=== PATIENT | female | born 1995 | race Caucasian/White ===

== ENCOUNTER 2024-10-13 07:42 | Inpatient (IN) ==
[2024-10-13] MEDS ORDERED: OXYTOCIN 30 UNITS/NSS 30 UNITS/500 ML BAG IV PRN (07:59)
[2024-10-13] MEDS ORDERED: CALCIUM CARBONATE 500 MG CHEWABLE TAB PO PRN (07:59)
[2024-10-13] MEDS ORDERED: LIDOCAINE 1% LOCAL 20 ML VIAL INFIL PRN (07:59)
--- NOTE | 2024-10-13 08:09 | History & Physical Report ---
Date of Service October 13, 2024 Assessment & Plan (1) Encounter for induction of labor: Paulette Castro is a 29yo at 39w0d admitted for induction of labor. Lazo bulb placed 8:30am 10/13/24 Pitocin 2 by 2 AROM when indicated Continue monitoring tracing, currently category 1 Admission and Anticipated Discharge Date Admission Date: October 13, 2024 History of Present Illness Chief Complaint: IOL Primary Care Provider: Nita Fox, DO Castro is a 29yo at 39w0d admitted for induction of labor. Feeling well today, denies any significant complications during . Baby moving: yes, regularly Contractions: yes but not regular yet Vaginal bleeding/discharge: denies Pain: denies significant Endorses mild intermittent headaches, nausea for which she has taken zofran and phenergan, and seeing "black spots" in her vision within the past few weeks that come and go. Otherwise denies chest pain, SOB, n/v/d, LE pain. Endorses her appetite has been very good in recent days. Last BM was yesterday afternoon, a bit constipated due to taking iron but taking stool softener. Denies headache, chest pain, abdominal pain, SOB, nausea/vomiting, diarrhea, or LE pain/swelling. GBS-, Rh+, T. pallidum pending. Allergies Allergy/AdvReac Type Severity Reaction Status Date / Time clavulanic acid Allergy Intermediate Gastrointestinal Verified 10/13/24 08:36 [From Augmentin] Upset Home Medications Medication Instructions Recorded Confirmed Type docusate sodium 100 mg capsule 100 mg PO DAILY 10/13/24 10/13/24 History ferrous sulfate 325 mg (65 mg 325 mg PO DAILY 10/13/24 10/13/24 History iron) tablet (Iron (ferrous sulfate)) vits no.124-ferrous fum PO 10/13/24 History 27 mg iron-folic acid 800 mcg tablet ( Vitamin) sertraline 50 mg tablet (Zoloft) 50 mg PO DAILY 10/13/24 10/13/24 History Patient History Medical History Depression with anxiety Varicella vaccination Surgical History S/P myringotomy with insertion of tube S/P wisdom tooth extraction Family History Grandfather (Maternal) Colorectal cancer Heart disease Mother Diabetes Crohn's disease Grandfather (Paternal) Heart disease Denies family history of Ovarian cancer Breast cancer Social History Smoking Status: Never smoker Do You Dip or Chew Tobacco: No; Hx Alcohol Use: No Hx Substance Use: No Preferred Language: Wolof Potato Picker Required: No Beliefs That Will Affect Care: None marital status: marital status details: Tomy Avelar (30) [phone] Current Living Situation: Spouse Current Living Situation Comment: lives with spouse, dog current occupational status: employed 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 Other Information That Helps Us Care for You: No Feels Safe at Home: Yes Safety Concerns: Feels Safe At This Time Assistive Devices: None Physical Exam Physical Exam: General: A&Ox3, appearing in no distress HEENT: moist mucous membranes, EOM intact, anicteric sclerae CV: RRR, +s1/s2, no m/r/g Resp: clear to auscultation b/l, no wheeze/rales/rhonchi GI/Abd: BS+, gravid, FHR pads in place Cervical: 1 | 50 | -2 , currently lazo bulb in place, est weight 8-9lbs LE: no significant swelling, calves nontender to palpation b/l, Klever's neg b/l Neuro: no facial droop, speech intact, wiggles toes on command Psych: normal speech, mood-affect congruence : FHR 155 baseline, moderate variability, accels present, decels neg Results & Data Vital Signs (Past 12 Hours) Vital Signs Pulse BP 10/13/24 08:02 111 H 130/85 Supervising Physician Co-Signing Physician Notes Resident Physician Supervision Note: I interviewed and examined the patient. Discussed with Dr. Cruz and agree with findings and plan as documented in the note. Any exceptions or clarifications are listed here: [None] Documented By: Lisy Ryan MD, FACOG Resident Activity Tracking Resident Involvement: Resident Care Provided Care Provided: OB Delivery
--- NOTE | 2024-10-13 08:38 | Labor Progress Brief Note ---
Date of Service October 13, 2024 Subjective planned lazo for unfavorable cx Assessment & Plan (1) Encounter for induction of labor: (2) Obesity affecting : Plan lazo placed, starting pit, see H&P Admission and Anticipated Discharge Date Admission Date: October 13, 2024 Physical Exam Constitutional: WD/WN, vitals as above Genitourinary: Manual OB Exam: + cervical dilation (visually closed) OB Exam Monitor Tracing: + external FHT monitor used (150s) PROCEDURE: sse cx visualized, grasped on ant lip with ring forcep, lazo through os and balloon inflated with 40cc sterile water. Spec removed, lazo taped to leg. pt marlene well. Results & Data Vital Signs (Past 12 Hours) Vital Signs Temp Pulse Resp BP 10/13/24 08:11 98.4 F 20 10/13/24 08:02 111 H 130/85 Coding Level of Care Code None Diagnoses Encounter for induction of labor Z34.90 Obesity affecting O99.210 CPT Codes Misx Procedure Codes - 85033 Placement of cervical dilator: 23413 Placement of cervical dilator ([id number]) TALENT DEVELOPMENT ANALYST Miscellaneous Codes Misx Procedure Codes 45879 Placement of cervical dilator
[2024-10-13 08:40] LABS: Hematocrit (blood only) 30.9 % (37.0-47.0); Hemoglobin 10.2 g/dl (12.0-16.0); Mean Corpuscular Hemoglobin 27.6 pg (25.0-34.0); Mean Corpuscular Volume 83.7 fL (80.0-100.0); Mean Platelet Volume 10.5 fL (9.4-12.4); Platelet Count 294 K/uL (130-400); RDW Coefficient of Variation 15.8 % (11.5-14.5); RDW Standard Deviation 47.7 fL (36.4-46.3); Red Blood Count 3.69 M/uL (4.20-5.40); White Blood Count 9.92 K/ul (4.8-10.8)
[2024-10-13] MEDS: LACTATED RINGER'S 1,000 ML IV PRN (09:17)
[2024-10-13] MEDS: OXYTOCIN 30 UNITS/NSS 30 UNITS/500 ML BAG IV PRN (09:21)
--- NOTE | 2024-10-13 16:47 | Anesthesiology Consultation ---
Date of Service October 13, 2024 Assessment & Plan Chart Review Chart Review: Acceptable Risk for Surgery and Patient NOT seen in Pre Admission Testing Consults Requested none History Height/Weight Height: 5 ft 3 in Weight: 108.862 kg Allergies Allergy/AdvReac Type Severity Reaction Status Date / Time clavulanic acid Allergy Intermediate Gastrointestinal Verified 10/13/24 08:36 [From Augmentin] Upset Medications Home Medications Medication Instructions Recorded Confirmed Last Taken docusate sodium 100 mg capsule 100 mg PO DAILY 10/13/24 10/13/24 10/12/24 08:00 ferrous sulfate 325 mg (65 mg 325 mg PO DAILY 10/13/24 10/13/24 10/12/24 08:00 iron) tablet (Iron (ferrous sulfate)) vits no.124-ferrous fum PO 10/13/24 10/12/24 08:00 27 mg iron-folic acid 800 mcg tablet ( Vitamin) sertraline 50 mg tablet (Zoloft) 50 mg PO DAILY 10/13/24 10/13/24 10/12/24 08:00 Active Medications Generic Name Dose Route Start Last Admin Trade Name Freq PRN Reason Stop Dose Admin Lactated Ringer's 1,000 mls @ 125 mls/hr 10/13/24 07:59 10/13/24 09:17 Lr IV 10/14/24 07:58 125 mls/hr .Q8H PRN Administration L&D Protocol Protocol Oxytocin 30 units in 500 mls @ 10 mls/hr 10/13/24 07:59 10/13/24 16:00 Pitocin 30 Units/Nss IV 10/15/24 07:58 0.72 units/hr .Q24H PRN 12 mls/hr Labor Induction/Augmentation Titration Protocol 0.6 UNITS/HR Past Medical History Medical History Depression with anxiety Varicella vaccination Past Family History Family History Grandfather (Maternal) Colorectal cancer Heart disease Mother Diabetes Crohn's disease Grandfather (Paternal) Heart disease Denies family history of Ovarian cancer Breast cancer Past Surgical History Surgical History S/P myringotomy with insertion of tube S/P wisdom tooth extraction Social History Smoking Status: Never smoker Do You Dip or Chew Tobacco: No Hx Alcohol Use: No Hx Substance Use: No Physical Exam Vital Signs Last Vital Signs Temp 36.7 C 10/13/24 14:58 Pulse 112 H 10/13/24 15:52 Resp 20 10/13/24 14:58 BP 116/72 10/13/24 15:52 Testing Laboratory Results 10/13/24 08:10 Blood Type B Positive 10/13/24 08:10 Antibody Screen NEGATIVE 10/13/24 08:10
[2024-10-13] MEDS ORDERED: NALOXONE HCL 1 MG in SODIUM CHLORIDE 0.9% 1,000 ML IV PRN ×2 (16:48→20:49)
[2024-10-13] MEDS ORDERED: fentaNYL citrate PF 100 MCG/2 ML VIAL EPI PRN ×2 (16:48→20:49)
[2024-10-13] MEDS ORDERED: BUPIVACAINE 0.25% PF 30 ML VIAL EPI PRN ×2 (16:48→20:49)
[2024-10-13] MEDS ORDERED: SODIUM CHLORIDE 0.9% PF INJ 10 ML VIAL EPI STA ×2 (16:48→20:49)
[2024-10-13] MEDS ORDERED: fentANYL 2 MCG/ML BUPIVacaine 0.125%-NSS 100ML BAG EPI PRN (16:48)
[2024-10-13] MEDS ORDERED: SODIUM CHLORIDE 0.9% PF INJ 10 ML VIAL EPI PRN ×2 (16:48→20:49)
[2024-10-13] MEDS ORDERED: LIDOCAINE 2%/EPINEPHRINE 1:200,000 20 ML PF EPI STA ×2 (16:48→20:49)
[2024-10-13] MEDS ORDERED: fentaNYL citrate PF 100 MCG/2 ML VIAL EPI STA ×2 (16:48→20:49)
[2024-10-13] MEDS ORDERED: NALOXONE HCL 0.4 MG/1 ML VIAL/CARP IV PRN ×2 (16:48→20:49)
[2024-10-13] MEDS ORDERED: BUPIVACAINE 0.25% PF 30 ML VIAL EPI STA ×2 (16:48→20:49)
[2024-10-13] MEDS ORDERED: NALBUPHINE HCL INJ 10 MG/ML AMP IV PRN ×2 (16:48→20:49)
[2024-10-13] MEDS ORDERED: LIDOCAINE 2% MPF LOCAL 5 ML VIAL EPI PRN ×2 (16:48→20:49)
[2024-10-13] MEDS ORDERED: ROPIVACAINE 0.5% PF 5 MG/ML 20 ML VIAL EPI PRN ×2 (16:48→20:49)
[2024-10-13] MEDS ORDERED: ePHEDrine sulfate 50 MG/ML AMP IV PRN ×2 (16:48→20:49)
[2024-10-13] MEDS ORDERED: diphenhydrAMINE 50 MG/ML VIAL IV PRN ×2 (16:48→20:49)
[2024-10-13] MEDS: BUTORPHANOL TARTRATE 1 MG/ML VIAL IV ONE (18:07)
[2024-10-13] MEDS ORDERED: PROMETHAZINE 6.25 MG/50.25 ML BAG IV PRN (20:49)
--- NOTE | 2024-10-13 20:49 | Anesthesiology Consultation ---
Date of Service October 13, 2024 Assessment & Plan Chart Review Chart Review: Patient NOT seen in Pre Admission Testing and Acceptable Risk for Labor Epidural Consults Requested none ASA ASA2 Proposed Anesthesia Anesthesia Type: Labor Epidural Risk / Benefits Reviewed With: PT / POA / Parent / Guardian, Accepts Plan and Informed Consent Obtained History Height/Weight Height: 5 ft 3 in Weight: 108.862 kg Allergies Allergy/AdvReac Type Severity Reaction Status Date / Time clavulanic acid Allergy Intermediate Gastrointestinal Verified 10/13/24 08:36 [From Augmentin] Upset Medications Home Medications Medication Instructions Recorded Confirmed Last Taken docusate sodium 100 mg capsule 100 mg PO DAILY 10/13/24 10/13/24 10/12/24 08:00 ferrous sulfate 325 mg (65 mg 325 mg PO DAILY 10/13/24 10/13/24 10/12/24 08:00 iron) tablet (Iron (ferrous sulfate)) vits no.124-ferrous fum PO 10/13/24 10/12/24 08:00 27 mg iron-folic acid 800 mcg tablet ( Vitamin) sertraline 50 mg tablet (Zoloft) 50 mg PO DAILY 10/13/24 10/13/24 10/12/24 08:00 Active Medications Generic Name Dose Route Start Last Admin Trade Name Freq PRN Reason Stop Dose Admin Lactated Ringer's 1,000 mls @ 125 mls/hr 10/13/24 07:59 10/13/24 20:10 Lr IV 10/14/24 07:58 999 mls/hr .Q8H PRN Infusion L&D Protocol Protocol Oxytocin 30 units in 500 mls @ 18 mls/hr 10/13/24 07:59 10/13/24 19:15 Pitocin 30 Units/Nss IV 10/15/24 07:58 1.08 units/hr .Q24H PRN 18 mls/hr Labor Induction/Augmentation Titration Protocol 1.08 UNITS/HR Past Medical History Medical History Depression with anxiety Varicella vaccination Exercise / Class Metabolic Activity II 4-5 Yardwork/Stairs/Walk up hill Past Family History Family History Grandfather (Maternal) Colorectal cancer Heart disease Mother Diabetes Crohn's disease Grandfather (Paternal) Heart disease Denies family history of Ovarian cancer Breast cancer Past Surgical History Surgical History S/P myringotomy with insertion of tube S/P wisdom tooth extraction Past Anesthesia History No Hx of Anesthesia Complications and No Family Hx of Anesthesia Complications History of PONV No Hx of PONV and No Hx of Motion Sickness Social History Smoking Status: Never smoker Do You Dip or Chew Tobacco: No Hx Alcohol Use: No Hx Substance Use: No Physical Exam Vital Signs Last Vital Signs Temp 36.8 C 10/13/24 19:13 Pulse 86 10/13/24 20:44 Resp 18 10/13/24 20:09 BP 124/69 10/13/24 20:09 Pulse Ox 100 10/13/24 20:44 ENMT Mouth: no dentition abnormality Thyromental Distance: > or= 3.5 Finger Breadths Mallampati Class: II Neck normal visual inspection Respiratory normal respiratory effort Auscultation: lungs clear to auscultation bilaterally Cardiovascular Rate/Rhythm: regular rate and regular rhythm Psychiatric Orientation: alert Testing Laboratory Results 10/13/24 08:10 Blood Type B Positive 10/13/24 08:10 Antibody Screen NEGATIVE 10/13/24 08:10
[2024-10-13] MEDS: LIDOCAINE 2%/EPINEPHRINE 1:200,000 20 ML PF ONE (21:08)
[2024-10-13] MEDS: SODIUM CHLORIDE 0.9% PF INJ 10 ML VIAL ONE (21:08)
[2024-10-13] MEDS: BUPIVACAINE 0.25% PF 30 ML VIAL ONE (21:08)
[2024-10-13] MEDS: fentANYL 2 MCG/ML BUPIVacaine 0.125%-NSS 100ML BAG ONE (21:08)
[2024-10-13] MEDS: ONDANSETRON INJ 2 MG/ML 2 ML VIAL IV PRN (22:52)
[2024-10-14] MEDS: fentANYL 2 MCG/ML BUPIVacaine 0.125%-NSS 100ML BAG EPI PRN (05:20)
--- NOTE | 2024-10-14 06:20 | Labor Progress Brief Note ---
Date of Service October 14, 2024 Subjective Reason For Note: Routine Evaluation pitocin at 26 milliunits- comfortable with epidural FHT's category 1 cervix exam: /100/-1 continue current plan Assessment & Plan Admission and Anticipated Discharge Date Admission Date: October 13, 2024 Results & Data Vital Signs (Past 12 Hours) Vital Signs Temp Pulse Resp BP Pulse Ox 10/14/24 06:15 83 92 10/14/24 06:14 84 97 10/14/24 06:09 84 98 10/14/24 06:08 82 131/67 10/14/24 06:04 81 98 10/14/24 05:59 84 98 10/14/24 05:54 80 98 10/14/24 05:51 82 115/58 L 10/14/24 05:49 81 97 10/14/24 05:44 85 97 10/14/24 05:39 96 H 98 10/14/24 05:36 80 132/65 10/14/24 05:34 79 97 10/14/24 05:29 86 97 10/14/24 05:24 77 97 10/14/24 05:21 78 119/59 L 10/14/24 05:19 80 97 10/14/24 05:14 80 97 10/14/24 05:09 83 98 10/14/24 05:05 77 123/58 L 10/14/24 05:04 81 98 10/14/24 04:59 83 98 10/14/24 04:54 85 97 10/14/24 04:52 84 111/55 L 10/14/24 04:49 91 H 98 10/14/24 04:44 80 98 10/14/24 04:39 87 98 10/14/24 04:37 88 141/68 H 10/14/24 04:34 79 97 10/14/24 04:29 75 97 10/14/24 04:24 76 95 10/14/24 04:21 75 133/64 10/14/24 04:19 75 97 10/14/24 04:14 76 96 10/14/24 04:09 75 96 10/14/24 04:05 74 132/57 L 10/14/24 04:04 78 97 10/14/24 03:59 78 97 10/14/24 03:54 75 98 10/14/24 03:51 74 134/66 03/07/25 03:49 78 98 10/14/24 03:44 76 98 10/14/24 03:39 83 98 10/14/24 03:36 78 129/67 10/14/24 03:34 81 97 10/14/24 03:30 98.4 F 10/14/24 03:29 81 98 10/14/24 03:24 79 97 10/14/24 03:21 82 131/68 10/14/24 03:19 92 H 99 10/14/24 03:14 86 98 10/14/24 03:09 84 98 10/14/24 03:06 75 130/64 10/14/24 03:04 79 98 10/14/24 02:59 81 97 10/14/24 02:54 82 98 10/14/24 02:52 76 132/76 10/14/24 02:49 88 99 10/14/24 02:44 86 98 10/14/24 02:39 104 H 98 10/14/24 02:35 100 H 132/74 10/14/24 02:34 96 H 99 10/14/24 02:29 88 97 10/14/24 02:24 81 97 10/14/24 02:21 92 H 132/68 10/14/24 02:19 79 96 10/14/24 02:14 85 97 10/14/24 02:09 79 96 10/14/24 02:05 78 121/60 10/14/24 02:04 80 95 10/14/24 01:59 77 96 10/14/24 01:54 72 95 10/14/24 01:51 82 131/67 10/14/24 01:49 81 95 10/14/24 01:48 74 94 10/14/24 01:44 87 96 10/14/24 01:42 72 94 10/14/24 01:39 78 96 10/14/24 01:37 72 123/72 10/14/24 01:34 75 97 10/14/24 01:30 98.4 F 10/14/24 01:29 70 95 10/14/24 01:24 86 96 10/14/24 01:21 70 120/60 10/14/24 01:19 72 95 10/14/24 01:14 76 97 10/14/24 01:09 66 96 10/14/24 01:06 86 113/70 10/14/24 01:04 75 96 10/14/24 00:59 72 97 10/14/24 00:54 82 98 10/14/24 00:51 74 117/63 10/14/24 00:49 76 97 10/14/24 00:44 76 99 10/14/24 00:39 86 98 10/14/24 00:37 84 144/68 H 10/14/24 00:34 80 98 10/14/24 00:29 76 97 10/14/24 00:24 78 98 10/14/24 00:22 75 132/71 10/14/24 00:19 77 98 10/14/24 00:14 78 99 10/14/24 00:09 78 98 10/14/24 00:06 74 120/71 10/14/24 00:04 80 98 10/13/24 23:59 98 10/13/24 23:59 75 10/13/24 23:54 99 10/13/24 23:54 74 10/13/24 23:52 75 10/13/24 23:52 125/66 10/13/24 23:49 98 10/13/24 23:49 75 10/13/24 23:45 98.1 F 10/13/24 23:44 98 10/13/24 23:44 74 10/13/24 23:39 98 10/13/24 23:39 76 10/13/24 23:37 78 10/13/24 23:37 137/74 10/13/24 23:34 98 10/13/24 23:34 95 H 10/13/24 23:29 97 10/13/24 23:29 83 10/13/24 23:24 98 10/13/24 23:24 90 10/13/24 23:21 76 10/13/24 23:21 117/67 10/13/24 23:19 98 10/13/24 23:19 82 10/13/24 23:14 97 10/13/24 23:14 76 10/13/24 23:09 97 10/13/24 23:09 79 10/13/24 23:06 82 10/13/24 23:06 129/72 10/13/24 23:04 97 10/13/24 23:04 82 10/13/24 22:59 97 10/13/24 22:59 81 10/13/24 22:54 98 10/13/24 22:54 82 10/13/24 22:51 94 H 10/13/24 22:51 128/72 10/13/24 22:49 99 10/13/24 22:49 96 H 10/13/24 22:44 99 10/13/24 22:44 95 H 10/13/24 22:39 97 10/13/24 22:39 95 H 10/13/24 22:36 81 10/13/24 22:36 136/74 10/13/24 22:34 98 10/13/24 22:34 78 10/13/24 22:29 97 10/13/24 22:29 77 10/13/24 22:24 97 10/13/24 22:24 81 10/13/24 22:20 86 10/13/24 22:20 124/64 10/13/24 22:19 98 10/13/24 22:19 83 10/13/24 22:14 98 10/13/24 22:14 80 10/13/24 22:09 98 10/13/24 22:09 89 10/13/24 22:05 75 10/13/24 22:05 127/65 10/13/24 22:04 98 10/13/24 22:04 80 10/13/24 21:59 99 10/13/24 21:59 79 10/13/24 21:54 99 10/13/24 21:54 82 10/13/24 21:51 78 10/13/24 21:51 123/66 10/13/24 21:49 98 10/13/24 21:49 84 10/13/24 21:44 99 10/13/24 21:44 75 10/13/24 21:40 98.2 F 10/13/24 21:39 99 10/13/24 21:39 82 10/13/24 21:34 100 10/13/24 21:34 80 10/13/24 21:31 86 10/13/24 21:31 134/79 10/13/24 21:29 100 10/13/24 21:29 79 10/13/24 21:25 88 10/13/24 21:25 140/76 10/13/24 21:24 100 10/13/24 21:24 83 10/13/24 21:22 93 H 10/13/24 21:22 144/80 H 10/13/24 21:19 100 10/13/24 21:19 88 10/13/24 21:15 82 10/13/24 21:15 136/73 10/13/24 21:14 99 10/13/24 21:14 85 10/13/24 21:13 84 10/13/24 21:13 146/72 H 10/13/24 21:11 90 10/13/24 21:11 143/76 H 10/13/24 21:09 99 10/13/24 21:09 85 10/13/24 21:09 136/77 10/13/24 21:07 83 10/13/24 21:07 137/79 10/13/24 21:04 99 10/13/24 21:04 85 10/13/24 21:00 90 10/13/24 21:00 92 H 10/13/24 20:59 99 10/13/24 20:59 95 H 10/13/24 20:54 100 10/13/24 20:54 97 H 10/13/24 20:49 99 10/13/24 20:49 84 10/13/24 20:44 100 10/13/24 20:44 86 10/13/24 20:39 100 10/13/24 20:39 81 10/13/24 20:34 100 10/13/24 20:34 80 10/13/24 20:29 100 10/13/24 20:29 82 10/13/24 20:24 99 10/13/24 20:24 91 H 10/13/24 20:19 100 10/13/24 20:19 90 10/13/24 20:14 99 10/13/24 20:14 95 H 10/13/24 20:09 18 10/13/24 20:09 18 10/13/24 20:09 99 10/13/24 20:09 78 10/13/24 20:09 124/69 10/13/24 19:13 18 10/13/24 19:13 98.2 F 18 10/13/24 19:13 93 H 10/13/24 19:13 129/75 Coding Level of Care Code 19370 SUB INP/OBS CARE
--- NOTE | 2024-10-14 07:27 | Anesthesia Procedure Note ---
Date of Service October 14, 2024 Anesthesia Epidural Re-Dose Vital Signs Temp Pulse Resp BP Pulse Ox 98.4 F 70 18 129/74 98 10/14/24 03:30 10/14/24 07:24 10/13/24 20:09 10/14/24 07:21 10/14/24 07:24 Notes Pain Intensity: 0 Dilatation (cm): 7.0 Effacement (%): 100 Called by nursing to evaluate epidural as the patient is having increased pain. The epidural was re-dosed with the following medications (all medications via epidural route) after negative aspiration of the epidural catheter for CSF/HEME. 0.25% Bupivacaine (5ml) with 100 mcg Fentanyl After Epidural Re-Dose Mental Status: alert / awake / arousable Pain: improving with treatment Airway Patency, RR, SpO2: stable & adequate BP & HR: stable & adequate
--- NOTE | 2024-10-14 10:32 | Labor Progress Brief Note ---
Date of Service October 14, 2024 Subjective Pushing well - started pushing around 9am - effective pushes. FHT 150s mod mary, +accels, variable decels with pushing, returns to baseline. 3+ station Assessment & Plan Admission and Anticipated Discharge Date Admission Date: October 13, 2024 Results & Data Vital Signs (Past 12 Hours) Vital Signs Temp Pulse BP Pulse Ox 10/14/24 10:21 75 122/64 10/14/24 09:52 83 118/58 L 10/14/24 09:37 71 130/79 10/14/24 09:35 96 10/14/24 09:35 89 10/14/24 09:35 81 92 10/14/24 09:30 86 85 L 10/14/24 09:29 83 94 10/14/24 09:25 75 97 10/14/24 09:21 72 131/67 10/14/24 09:20 84 97 10/14/24 09:18 76 93 10/14/24 09:15 107 H 98 10/14/24 09:12 89 92 10/14/24 09:09 79 97 10/14/24 09:04 78 98 10/14/24 09:01 95 H 88 L 10/14/24 08:59 81 96 10/14/24 08:54 95 H 98 10/14/24 08:51 81 143/69 H 10/14/24 08:49 82 97 10/14/24 08:44 76 97 10/14/24 08:39 76 97 10/14/24 08:36 76 133/63 10/14/24 08:34 75 97 10/14/24 08:29 79 98 10/14/24 08:24 78 97 10/14/24 08:21 75 118/59 L 10/14/24 08:19 75 98 10/14/24 08:14 76 97 10/14/24 08:09 79 98 10/14/24 08:04 81 98 10/14/24 07:59 80 99 10/14/24 07:54 80 97 10/14/24 07:52 78 120/59 L 10/14/24 07:49 79 98 10/14/24 07:46 116 H 93 10/14/24 07:44 76 100 10/14/24 07:39 72 97 10/14/24 07:36 71 138/73 10/14/24 07:34 73 97 10/14/24 07:29 72 98 10/14/24 07:24 70 98 10/14/24 07:21 74 129/74 10/14/24 07:19 75 97 10/14/24 07:17 81 92 10/14/24 07:14 81 97 10/14/24 07:09 83 98 10/14/24 07:06 82 133/83 10/14/24 07:04 84 97 10/14/24 06:59 93 H 99 10/14/24 06:54 82 99 10/14/24 06:51 84 125/72 10/14/24 06:49 82 98 10/14/24 06:44 85 98 10/14/24 06:39 82 98 10/14/24 06:36 78 135/63 10/14/24 06:34 79 98 10/14/24 06:29 81 97 10/14/24 06:24 81 97 10/14/24 06:22 75 130/70 10/14/24 06:19 81 97 10/14/24 06:15 83 92 10/14/24 06:14 84 97 10/14/24 06:09 84 98 10/14/24 06:08 82 131/67 10/14/24 06:04 81 98 10/14/24 05:59 84 98 10/14/24 05:54 80 98 10/14/24 05:51 82 115/58 L 10/14/24 05:49 81 97 10/14/24 05:44 85 97 10/14/24 05:39 96 H 98 10/14/24 05:36 80 132/65 10/14/24 05:34 79 97 10/14/24 05:29 86 97 10/14/24 05:24 77 97 10/14/24 05:21 78 119/59 L 10/14/24 05:19 80 97 10/14/24 05:14 80 97 10/14/24 05:09 83 98 10/14/24 05:05 77 123/58 L 10/14/24 05:04 81 98 10/14/24 04:59 83 98 10/14/24 04:54 85 97 10/14/24 04:52 84 111/55 L 10/14/24 04:49 91 H 98 10/14/24 04:44 80 98 10/14/24 04:39 87 98 10/14/24 04:37 88 141/68 H 10/14/24 04:34 79 97 10/14/24 04:29 75 97 10/14/24 04:24 76 95 10/14/24 04:21 75 133/64 10/14/24 04:19 75 97 10/14/24 04:14 76 96 10/14/24 04:09 75 96 10/14/24 04:05 74 132/57 L 10/14/24 04:04 78 97 10/14/24 03:59 78 97 10/14/24 03:54 75 98 10/14/24 03:51 74 134/66 10/14/24 03:49 78 98 10/14/24 03:44 76 98 10/14/24 03:39 83 98 10/14/24 03:36 78 129/67 10/14/24 03:34 81 97 10/14/24 03:30 36.9 C 10/14/24 03:29 81 98 10/14/24 03:24 79 97 10/14/24 03:21 82 131/68 10/14/24 03:19 92 H 99 10/14/24 03:14 86 98 10/14/24 03:09 84 98 10/14/24 03:06 75 130/64 10/14/24 03:04 79 98 10/14/24 02:59 81 97 10/14/24 02:54 82 98 10/14/24 02:52 76 132/76 10/14/24 02:49 88 99 10/14/24 02:44 86 98 10/14/24 02:39 104 H 98 10/14/24 02:35 100 H 132/74 10/14/24 02:34 96 H 99 10/14/24 02:29 88 97 10/14/24 02:24 81 97 10/14/24 02:21 92 H 132/68 10/14/24 02:19 79 96 10/14/24 02:14 85 97 10/14/24 02:09 79 96 10/14/24 02:05 78 121/60 10/14/24 02:04 80 95 10/14/24 01:59 77 96 10/14/24 01:54 72 95 10/14/24 01:51 82 131/67 10/14/24 01:49 81 95 10/14/24 01:48 74 94 10/14/24 01:44 87 96 10/14/24 01:42 72 94 10/14/24 01:39 78 96 10/14/24 01:37 72 123/72 10/14/24 01:34 75 97 10/14/24 01:30 36.9 C 10/14/24 01:29 70 95 10/14/24 01:24 86 96 10/14/24 01:21 70 120/60 10/14/24 01:19 72 95 10/14/24 01:14 76 97 10/14/24 01:09 66 96 10/14/24 01:06 86 113/70 10/14/24 01:04 75 96 10/14/24 00:59 72 97 10/14/24 00:54 82 98 10/14/24 00:51 74 117/63 10/14/24 00:49 76 97 10/14/24 00:44 76 99 10/14/24 00:39 86 98 10/14/24 00:37 84 144/68 H 10/14/24 00:34 80 98 10/14/24 00:29 76 97 10/14/24 00:24 78 98 10/14/24 00:22 75 132/71 10/14/24 00:19 77 98 10/14/24 00:14 78 99 10/14/24 00:09 78 98 10/14/24 00:06 74 120/71 10/14/24 00:04 80 98 10/13/24 23:59 98 10/13/24 23:59 75 10/13/24 23:54 99 10/13/24 23:54 74 10/13/24 23:52 75 10/13/24 23:52 125/66 10/13/24 23:49 98 10/13/24 23:49 75 10/13/24 23:45 36.7 C 10/13/24 23:44 98 10/13/24 23:44 74 10/13/24 23:39 98 10/13/24 23:39 76 10/13/24 23:37 78 10/13/24 23:37 137/74 10/13/24 23:34 98 10/13/24 23:34 95 H 10/13/24 23:29 97 10/13/24 23:29 83 10/13/24 23:24 98 10/13/24 23:24 90 10/13/24 23:21 76 10/13/24 23:21 117/67 10/13/24 23:19 98 10/13/24 23:19 82 10/13/24 23:14 97 10/13/24 23:14 76 10/13/24 23:09 97 10/13/24 23:09 79 10/13/24 23:06 82 10/13/24 23:06 129/72 10/13/24 23:04 97 10/13/24 23:04 82 10/13/24 22:59 97 10/13/24 22:59 81 10/13/24 22:54 98 10/13/24 22:54 82 10/13/24 22:51 94 H 10/13/24 22:51 128/72 10/13/24 22:49 99 10/13/24 22:49 96 H 10/13/24 22:44 99 10/13/24 22:44 95 H 10/13/24 22:39 97 10/13/24 22:39 95 H 10/13/24 22:36 81 10/13/24 22:36 136/74 10/13/24 22:34 98 10/13/24 22:34 78 Coding Level of Care Code None
--- NOTE | 2024-10-14 11:10 | Delivery Summary ---
Vaginal Delivery Summary Date of Service October 14, 2024 Vaginal Delivery Summary and 2nd Degree LAC Vaginal Delivery Summary: Pre-delivery diagnoses: 29yo @ 39 08/16, IOL for obesity Post-delivery diagnoses: same Procedure: spontaneous vaginal delivery Surgeon: Ysabel Castano DO Complications: none Findings: Viable male . Apgars: 8/9 . Weight pending, please see nursery records Estimated QBL: please see nursing notes for QBL, no count yet at time of my note, approximate EBL by my estimate during case 400cc Description of delivery: The patient progressed to complete with epidural anesthesia. She then began to push. She spontaneously vaginally delivered a viable from the cephalic presentation. The head delivered in RAUL position. Nuchal cord, delivered through. The anterior shoulder delivered, followed by the posterior shoulder, followed by the body. The baby was placed on mother's abdomen and a spontaneous cry was heard. Delayed cord clamping was employed, and the cord was doubly clamped and cut. A segment was retained for cord gases. Cord blood was obtained. The placenta was delivered spontaneously intact with a 3-vessel cord. The uterus and vagina were swept of clots and debris. IV pitocin was given. The uterus became firm. The cervix, vagina, and perineum were inspected and 2nd degree perineal laceration noted, repaired with 3-0 Vicryl in standard fashion. Arterial bleed supraurethral - red rubber james ter placed, 3 figure of eight sutures placed. Excellent hemostasis was observed. The mother and baby are recovering in stable and good condition in the room. Sponge, needle and instrument counts were correct x 2. Ysabel Castano DO [facility] Vaginal Delivery Charge Vaginal Delivery Codes: 59368 global code for the antepartum, delivery, and post- Delivery Type Details: and 2nd Degree LAC
--- NOTE | 2024-10-14 11:16 | Anesthesia Procedure Note ---
Date of Service October 14, 2024 Anesthesia Post Epidural Note Vital Signs Vital Signs: Temp Pulse Resp BP Pulse Ox 98.4 F 93 H 18 144/63 H 96 10/14/24 03:30 10/14/24 11:07 10/13/24 20:09 10/14/24 11:07 10/14/24 09:35 Pain Intensity Abdomen: Pain Intensity: 10 Notes Mental Status: alert / awake / arousable and participated in evaluation Nausea / Vomiting: adequately controlled Pain: adequately controlled Airway Patency, RR, SpO2: stable & adequate BP & HR: stable & adequate Hydration State: stable & adequate Neuraxial Anesthesia: was administered and sensory block is resolving Anesthetic Complications: no major complications apparent and Pt Satisfied with anesthetic care Epidural: Removed without complications and With tip intact
[2024-10-14] MEDS ORDERED: bisacodyL 10 MG SUPP PR PRN (11:22)
[2024-10-14] MEDS ORDERED: HYDROCORTISONE ACETATE 25 MG SUPP PR PRN (11:22)
[2024-10-14] MEDS ORDERED: BENZOCAINE 20% SPRY 85 APPLN/85 GM CAN EXT PRN (11:22)
[2024-10-14] MEDS ORDERED: OXYTOCIN 30 UNITS/NSS 30 UNITS/500 ML BAG IV PRN (11:22)
[2024-10-14] MEDS ORDERED: oxyCODONE/ACETAMINOPHEN 5mg/325mg TAB PO PRN (11:22)
[2024-10-14 11:46] LABS: Base Excess Cord Venous Blood -7.9 mEq/L (-7.7-1.9); Cord Venous Blood HCO3 17 mmol/L (18.4-26.8); Cord Venous Blood PCO2 31 mmHg (30.4-57.2); Cord Venous Blood PO2 43 mmHg (14.1-43.3); Cord Venous Blood pH 7.34 (7.20-7.44); O2 Saturation Cord Venous Bld 84.1 % (<68)
[2024-10-14] MEDS: SERTRALINE HCL 50 MG TABLET PO SCH (11:58)
[2024-10-14] MEDS: IBUPROFEN 600 MG TAB PO PRN (12:37)
[2024-10-14] MEDS: ACETAMINOPHEN 325 MG TAB PO PRN (19:02)
[2024-10-14] MEDS: DOCUSATE SODIUM 100 MG CAP PO SCH (22:00)
--- NOTE | 2024-10-15 05:56 | Obstetrical Progress Note ---
Date of Service October 15, 2024 Assessment & Plan (1) state: (2) Perineal laceration during delivery: Plan Gloria is a day 1 s/p with 2nd degree perineal laceration. Feels well other than overnight hot/cold and some shakes, BP slightly low Continue care Encourage ambulation and , considering fashion consultant Pain control with ibuprofen as needed Hgb: 7.8, intermittent shakes but otherwise asymptomatic, repeat CBC w/out dif in afternoon if symptoms persist or more bleeding than expected - otherwise CBC in AM 3/9 ordered Home tomorrow or next day Follow up with Dr. Castano in 6wks Admission and Anticipated Discharge Date Admission Date: October 13, 2024 Supervising Physician Co-Signing Physician Notes Resident Physician Supervision Note: I interviewed and examined the patient. Discussed with Dr. Cruz and agree with findings and plan as documented in the note. Any exceptions or clarifications are listed here: Afebrile, doing well this morning. Continue observation for s/s viral illness given subjective chills, but otherwise routine PNC. Documented By: Amairani Sprague MD, FACOG Subjective Gloria is a 29yo day 1 s/p with 2nd degree perineal laceration. Feeling: a bit hot/cold overnight and with some shakes, otherwise feeling fine Ambulation: yes Void: yes Lochia: steady Diet: tolerating Feeding: breast, not much milk letdown yet, considering fashion consultant Sx: denies other than above Physical Exam Physical Exam: Constitutional: WD/WN, vitals as above GI/abd: +BS, abdomen soft, fundus L of midline firm palpable 2fw+ umbilicus Ext: no LE edema, calves nontender to palpation, wiggles toes Psychiatric: A&Ox3, euthymic Results & Data Vital Signs (Past 12 Hours) Vital Signs Temp Pulse Resp BP Pulse Ox O2 Del Method 10/15/24 03:10 36.8 C 95 H 18 94/64 L 98 Room Air 10/14/24 23:10 37 C 89 18 90/57 L 96 Room Air 10/14/24 18:59 36.7 C 90 16 103/70 96 Room Air Resident Activity Tracking Resident Involvement: Resident Care Provided Care Provided: OB Delivery (2) Perineal laceration during delivery Perineal laceration degree: second degree Qualified Code(s): O70.1 - Second degree perineal laceration during delivery
[2024-10-15 06:19] LABS: Hematocrit (blood only) 23.7 % (37.0-47.0); Hemoglobin 7.8 g/dl (12.0-16.0)
[2024-10-15 07:35] VITALS: RESP 16
[2024-10-15] MEDS: DIPHTHER/TETAN/PERTUS Vaccine (Tdap, Adol/Adult) 0.5mL IM ONE (07:54)
[2024-10-15] MEDS: PRENATAL VITAMIN 1 TAB PO SCH (08:29)
[2024-10-15] MEDS ORDERED: DOCUSATE SODIUM 100 MG CAP PO SCH (09:00)
[2024-10-15] MEDS: ePHEDrine sulfate 50 MG/ML AMP ONE (19:25)
[2024-10-15] MEDS: fentaNYL citrate PF 100 MCG/2 ML VIAL ONE (19:25)
[2024-10-15] MEDS: bisacodyL 5 MG TABEC PO SCH (20:26)
[2024-10-16 06:14] LABS: Hematocrit (blood only) 24.1 % (37.0-47.0); Hemoglobin 7.9 g/dl (12.0-16.0); Mean Corpuscular Hemoglobin 28.2 pg (25.0-34.0); Mean Corpuscular Hgb Conc 32.8 g/dL (32.0-36.0); Mean Corpuscular Volume 86.1 fL (80.0-100.0); Mean Platelet Volume 10.3 fL (9.4-12.4); Platelet Count 234 K/uL (130-400); RDW Coefficient of Variation 15.9 % (11.5-14.5); RDW Standard Deviation 50.1 fL (36.4-46.3); White Blood Count 14.71 K/ul (4.8-10.8)
[2024-10-16 07:06] VITALS: BP 110/73; PULSE 82; TEMP 97.5; O2SAT 98
--- NOTE | 2024-10-16 08:47 | Obstetrical Progress Note ---
Date of Service October 16, 2024 Assessment & Plan (1) state: PPD#2 doing well. Ambulating, eating/drinking ok. No weakness/dizziness. Minimal lochia. Feels ready for discharge home today. Reviewed instructions, followup in office in 6 weeks. Subjective Ambulation: ambulating normally Voiding: no voiding problems Diet Tolerance:: regular diet Lochia:: Moderate Review of Systems All systems reviewed & are unremarkable except as noted in HPI & below Physical Exam Constitutional WD/WN, vitals as above no acute distress Respiratory normal respiratory effort Cardiovascular Rate/Rhythm: regular rate and regular rhythm Gastrointestinal (Abdomen) Inspection/Auscultation: abdomen normal to inspection; abdomen not distended Percussion/Palpation: abdomen soft Genitourinary OB Exam Abdomen: + fundal height Fundus: + firm; not tender Results & Data Vital Signs (Past 12 Hours) Vital Signs Temp Pulse Resp BP Pulse Ox O2 Del Method 10/16/24 07:03 36.4 C L 82 16 110/73 98 Room Air 10/15/24 23:08 36.3 C L 83 16 95/62 L 96 Room Air 10/15/24 20:15 36.9 C 99 H 16 116/73 Room Air
== END 2024-10-16 11:35 | disposition home or self-care (01) | DRG 807 ==
LOC: 4S1 07:42 → 4E2 10-14 13:53